=== PATIENT | female | born 1995 | race Caucasian/White ===

== ENCOUNTER 2017-09-02 10:30 | Emergency (ER) | payer MEDICAID, OTHER ==
[~2017-09-02] VITALS: Ht 162.6 cm; Wt 81.6 kg
[2017-09-02 10:49] VITALS: BP 149/98
[2017-09-02] MEDS ORDERED: KETOROLAC TROMETHAMINE INJ 30 MG/ML VIAL ONE (11:58)
[2017-09-02] MEDS ORDERED: KETOROLAC TROMETHAMINE INJ 30 MG/ML VIAL IM ONE (12:00)
== END 2017-09-02 12:53 | disposition home or self-care (01) ==
LOC: ER 10:31
DX: R51 Headache (principal); F17.200 Nicotine dependence, unspecified, uncomplicated
CPT/HCPCS: 96372; 99283; A4606; J1885; Z7610

== ENCOUNTER 2017-10-13 13:11 | Emergency (ER) | payer MEDICAID ==
[~2017-10-13] VITALS: Ht 167.6 cm; Wt 74.8 kg
[2017-10-13 13:33] VITALS: BP 135/80
[2017-10-13] MEDS ORDERED: IBUPROFEN 600 MG TABLET PO ONE ×2 (13:56→14:00)
== END 2017-10-13 13:59 | disposition home or self-care (01) ==
LOC: ER 13:15
DX: M54.5 Low back pain (principal); F17.200 Nicotine dependence, unspecified, uncomplicated
CPT/HCPCS: 99282; A4606; Z7610

== ENCOUNTER 2018-02-02 12:16 | Emergency (ER) | payer MEDICAID, OTHER ==
[~2018-02-02] VITALS: Ht 162.6 cm; Wt 89.4 kg
[2018-02-02 12:16] VITALS: BP 120/63
== END 2018-02-02 12:49 | disposition home or self-care (01) ==
LOC: ER 12:19
DX: H66.91 Otitis media, unspecified, right ear (principal); F17.200 Nicotine dependence, unspecified, uncomplicated
CPT/HCPCS: A4606; Z7610

== ENCOUNTER 2024-02-22 16:31 | Emergency (ER) | payer OTHER ==
[~2024-02-22] VITALS: Ht 162.6 cm; Wt 90.7 kg
[2024-02-22] MEDS ORDERED: HYDROCODONE/APAP 5/325MG TABLET ONE (18:00)
[2024-02-22] MEDS: IBUPROFEN 400 MG TABLET PO ONE (18:00)
[2024-02-22] MEDS ORDERED: IBUPROFEN 400 MG TABLET ONE (18:00)
[2024-02-22] MEDS: HYDROCODONE/APAP 5/325MG TABLET PO ONE (18:01)
[2024-02-22] MEDS ORDERED: IBUP-1955 PO (19:08)
[2024-02-22] MEDS ORDERED: HYDR-4209 PO (19:08)
[2024-02-22] MEDS ORDERED: ACET-2605 PO (19:08)
[2024-02-22 19:15] VITALS: BP 118/60; TEMP 98.6; O2SAT 99
== END 2024-02-22 19:27 | disposition home or self-care (01) ==
LOC: ER 16:40
DX: M54.50 Low back pain, unspecified (principal); W11.XXXA Fall on and from ladder, initial encounter; Y93.89 Activity, other specified; Y92.89 Other specified places as the place of occurrence of the external cause; Y99.8 Other external cause status
CPT/HCPCS: 72220-TC

== ENCOUNTER 2025-10-20 17:40 | Emergency (ER) | payer OTHER ==
[~2025-10-20] VITALS: Ht 162.6 cm; Wt 97.5 kg
[~2025-10-20 17:40] MED LIST: ACET-2605 PO; HYDR-4209 PO; IBUP-1955 PO
[2025-10-20 18:25] VITALS: BP 143/68; TEMP 98.1; O2SAT 97
== END 2025-10-20 19:24 | disposition left against medical advice (07) ==
LOC: ER 17:50
DX: F41.9 Anxiety disorder, unspecified (principal); Z53.21 Procedure and treatment not carried out due to patient leaving prior to being seen by health care provider